=== PATIENT | female | born 2000 | race Caucasian/White ===

== ENCOUNTER 2021-05-20 11:36 | Emergency (ER) | payer MEDICAID, MEDICARE ==
[~2021-05-20] VITALS: Ht 154.9 cm; Wt 86.2 kg
[2021-05-20 13:29] VITALS: BP 129/58
[2021-05-20] MEDS ORDERED: HYDR25SU21 RE (13:47)
[2021-05-20] MEDS ORDERED: LACT10SO70 PO (13:47)
[2021-05-20] MEDS ORDERED: CIPR-173 PO (13:47)
== END 2021-05-20 13:55 | disposition home or self-care (01) ==
LOC: ER 11:36
DX: K64.4 Residual hemorrhoidal skin tags (principal); N39.0 Urinary tract infection, site not specified; J45.909 Unspecified asthma, uncomplicated; Z79.2 Long term (current) use of antibiotics; Z79.899 Other long term (current) drug therapy
CPT/HCPCS: 81002; 81025